=== PATIENT | male | born 1985 | race Caucasian/White ===

== ENCOUNTER 2017-09-13 18:53 | Emergency (ER) | payer BC ==
[~2017-09-13] VITALS: Ht 185.4 cm; Wt 86.2 kg
[2017-09-13 19:03] VITALS: BP 129/96
[2017-09-13] MEDS ORDERED: CLINDAMYCIN 900 MG in IV D5W 100 ML IV ONE (19:30)
[2017-09-13] MEDS ORDERED: MORPHINE SULFATE INJ 10 MG/ML DISP.SYRIN IV ONE (19:30)
[2017-09-13] MEDS ORDERED: IV NS 0.9% 1,000 ML BAG IV ONE (19:30)
[2017-09-13] MEDS ORDERED: ONDANSETRON HCL/PF - ER 4 MG/2 ML VIAL IV ONE (19:30)
[2017-09-13] MEDS ORDERED: ONDANSETRON HCL/PF 4 MG/2 ML VIAL ONE (19:34)
[2017-09-13] MEDS ORDERED: MORPHINE SULFATE INJ 4 MG/ML DISP.SYRIN ONE (19:35)
--- NOTE | 2017-09-13 19:38 | NUR ---
PAGED OR (ENT).
[2017-09-13 19:39] LABS: BASOPHILS # (AUTO) 0.1 /CMM (0.0-0.2); BASOPHILS % (AUTO) 0.5 % (0.0-2.0); EOSINOPHILS % (AUTO) 0.4 % (0.0-6.0); HEMATOCRIT 45 % (39-51); HEMOGLOBIN 15.4 g/dL (13.5-17.5); LYMPHOCYTES % (AUTO) 8.1 % (20.0-44.0); MEAN CORPUSCULAR HEMOGLOBIN 32 PG (26.0-33.0); MEAN CORPUSCULAR HGB CONC 34 g/dl (31.0-36.0); MEAN CORPUSCULAR VOLUME 94 fL (80-96); MONOCYTES # (AUTO) 1.4 /CMM (0.1-1.30); MONOCYTES % (AUTO) 11.5 % (2.0-12.0); NEUTROPHILS % (AUTO) 79.5 % (43.0-81.0); PLATELET COUNT (AUTO) 242 /CMM (150-450); RDW COEFFICIENT OF VARIATION 12.8 (11.5-15.0); RED BLOOD CELL COUNT(AUTO) 4.81 MIL/uL (4.5-6.0); WHITE BLOOD COUNT (AUTO) 12.5 K/uL (4.3-11.0)
[2017-09-13 19:49] LABS: CALCIUM, SERUM 9.2 mg/dL (8.5-10.1); CREATININE 0.9 mg/dL (0.6-1.3)
[2017-09-13] MEDS ORDERED: DEXAMETHASONE SOD PHOSPHATE 10 MG/ML VIAL ONE (19:51)
--- NOTE | 2017-09-13 19:54 | NUR ---
MEDICATED PT ORDERED
[2017-09-13] MEDS ORDERED: CLINDAMYCIN 900 MG in IV D5W 50 ML IV ONE (20:00)
[2017-09-13] MEDS ORDERED: DEXAMETHASONE SOD PHOSPHATE 4 MG/ML VIAL IV ONE (20:00)
[2017-09-13] MEDS ORDERED: LIDOCAINE 1%-EPI 1:100,000 20 ML VIAL TP ONE (21:00)
[2017-09-13] MEDS ORDERED: HYDROMORPHONE INJ 2 MG/ML DISP.SYRIN ONE (21:11)
[2017-09-13] MEDS ORDERED: LIDOCAINE 1%-EPI 1:100,000 20 ML VIAL ONE (21:12)
--- NOTE | 2017-09-13 21:41 | NUR ---
SISTER, YOANDY DANIELLE, .
[2017-09-14] MEDS ORDERED: HYDROMORPHONE INJ 0.5 MG/0.5 ML SYRINGE IV ONE (00:30)
== END 2017-09-13 22:10 | disposition home or self-care (01) ==
LOC: ER 18:55
DX: J36 Peritonsillar abscess (principal); D72.829 Elevated white blood cell count, unspecified
CPT/HCPCS: 36415; 80048-TC; 83605-TC; 85025-TC; 86403-TC; 87040-TC; 87070-TC; A4606; J1100; J1170; J2270; J2405; J3490; J7030; J7060; Z7610